=== PATIENT | male | born 1965 | race African-American/Black ===

== ENCOUNTER 2024-05-26 08:26 | Emergency (ER) | payer OTHER ==
[~2024-05-26] VITALS: Ht 177.8 cm; Wt 105.0 kg
[2024-05-26 08:27] VITALS: O2SAT 99
[2024-05-26] MEDS: TRANEXAMIC ACID 1,000MG/10ML TP ONE (10:09)
[2024-05-26] MEDS ORDERED: OXYM30SP26 BOTHNSTRLS (10:44)
[2024-05-26 10:47] VITALS: BP 151/78; PULSE 78; RESP 16; TEMP 36.78072; O2SAT 99
== END 2024-05-26 11:09 | disposition home or self-care (01) ==
LOC: ER 08:47
DX: R04.0 Epistaxis (principal); F41.9 Anxiety disorder, unspecified; F32.A Depression, unspecified
CPT/HCPCS: 99283